=== PATIENT | male | born 1945 | race Caucasian/White ===

== ENCOUNTER 2017-01-08 08:25 | Emergency (ER) | payer MEDICARE ==
[2017-01-08 09:01] LABS: BASOPHILS 0 % (0-2); EOSINOPHILS 0.5 % (0-7); HEMATOCRIT 53.7 % (42.0-54.0); HEMOGLOBIN 18.1 g/dL (13.5-17.5); IMMATURE GRANULOCYTES 0.2 % (0-5); LYMPHOCYTES 32.4 % (15-50); MCH 30.2 pg (26.0-34.0); MCHC 33.7 g/dL (31.0-37.0); MCV 89.6 fL (80.0-100.0); NEUTROPHILS 56.9 % (40-80); RBC 5.99 10x6/uL (4.20-6.10); RDW 13.9 % (11.5-14.5); WBC 5.7 10x3/uL (4.8-10.8)
[2017-01-08 09:07] LABS: PLATELET COUNT 197 10x3/uL (130-400)
[2017-01-08 09:23] LABS: ALBUMIN 3.7 g/dL (3.4-5.0); ANION GAP 6.8 mmol/L (8-16); BILIRUBIN - TOTAL 0.4 mg/dL (0.2-1.3); CALCIUM 9.1 mg/dL (8.5-10.1); CARBON DIOXIDE 29.9 mmol/L (21.0-32.0); CREATININE - SERUM 1.2 mg/dL (0.6-1.3); POTASSIUM - SERUM 3.7 mmol/L (3.5-5.1); PROTEIN - SERUM 7.5 g/dL (6.4-8.2)
== END 2017-01-08 11:36 | disposition home or self-care (01) ==
LOC: D.ER 08:25
PROVIDERS: Emergency Medicine
DX: R42 Dizziness and giddiness (principal)

== ENCOUNTER → 2017-02-08 12:47 | Outpatient (CLI) | payer MEDICARE | END | disposition home or self-care (01) | LOC: D.US 12:47 | DX: I63.139 Cerebral infarction due to embolism of unspecified carotid artery (principal); I10 Essential (primary) hypertension; G47.33 Obstructive sleep apnea (adult) (pediatric) ==

== ENCOUNTER → 2018-08-29 18:21 | Outpatient (CLI) | payer MEDICARE | END | disposition home or self-care (01) | LOC: D.LABREF 18:21 | PROVIDERS: ATTEND Orthopaedic Surgery | DX: M16.12 Unilateral primary osteoarthritis, left hip (principal) ==

== ENCOUNTER 2018-10-17 09:35 | Day surgery (SDC) | payer MEDICARE ==
[2018-10-15 14:13] LABS: BASOPHILS 0.2 % (0-2); EOSINOPHILS 0.8 % (0-7); HEMATOCRIT 49.4 % (42.0-54.0); HEMOGLOBIN 17.4 g/dL (13.5-17.5); IMMATURE GRANULOCYTES 0.2 % (0-5); LYMPHOCYTES 35.9 % (15-50); MCH 30.5 pg (26.0-34.0); MCHC 35.2 g/dL (31.0-37.0); MCV 86.5 fL (80.0-100.0); MEAN PLATELET VOLUME 10.3 fL (7.4-10.4); MONOCYTES 11.5 % (2-11); NEUTROPHILS 51.4 % (40-80); PLATELET COUNT 235 10x3/uL (130-400); RBC 5.71 10x6/uL (4.20-6.10); RDW 13.7 % (11.5-14.5); WBC 6.1 10x3/uL (4.8-10.8)
[2018-10-15 14:23] LABS: ANION GAP 16.1 mmol/L (8-16); CALCIUM 9.3 mg/dL (8.5-10.1); CARBON DIOXIDE 24.4 mmol/L (21.0-32.0); CREATININE - SERUM 1.1 mg/dL (0.6-1.3); POTASSIUM - SERUM 3.5 mmol/L (3.5-5.1)
[2018-10-17 06:36] VITALS: BP 145/78; BMI 27.6
[~2018-10-17 09:35] MED LIST: ADALAT CC90 MG PO; CHLORTHALIDONE25 MG PO; NEURONTIN 300300 MG PO; TRAZODONE HCL150 MG PO; ULTRAM50 MG PO
--- NOTE | 2018-10-17 09:37 | NUR ---
0930-RECD FROM PACU. ALERT. IV PATENT. LEFT KNEE DRESSING DRY AND INTACT WITH IMMOBILIZER IN PLACE. DENIES PAIN/NAUSEA. FULL LIQUIDS SERVED.
--- NOTE | 2018-10-17 11:18 | NUR ---
1050 IV REMOVED 1115 VOIDED IN BATHROOM. AMB WELL WITH PWB
--- NOTE | 2018-10-17 11:38 | NUR ---
1115 RECIEVED CRUTCHES FROM DRS OFFICE. 1130 PT DISCHARGED FROM HOSPITAL
== END 2018-10-17 11:30 | disposition home or self-care (01) ==
LOC: D.OPS 09:35
PROVIDERS: ATTEND Orthopaedic Surgery
DX: S83.242A Other tear of medial meniscus, current injury, left knee, initial encounter (principal); M94.262 Chondromalacia, left knee; M23.8X2 Other internal derangements of left knee; Z01.812 Encounter for preprocedural laboratory examination

== ENCOUNTER → 2019-04-26 07:37 | Outpatient (CLI) | payer MEDICARE | END | disposition home or self-care (01) | LOC: D.RAD 07:37 | PROVIDERS: ATTEND Internal Medicine Pulmonary Disease | DX: R06.2 Wheezing (principal) ==

== ENCOUNTER → 2019-06-07 08:59 | Outpatient (CLI) | payer MEDICARE ==
--- NOTE | 2019-06-13 11:25 | EC ---
PATIENT:WILNER DECKER DATE OF SERVICE: 06/07/19 SEX: M MEDICAL RECORD: [id number] DATE OF : 47 LOCATION:[facility] AGE OF PATIENT: 74 ADMISSION DATE: 06/07/19 REFERRING PHYSICIAN: INTERPRETING PHYSICIAN: JOZEF MEYERS MD ECHOCARDIOGRAM REPORT ECHO CHARGES 4 ECHO COMPLETE Date: 06/07/19 CLINICAL DIAGNOSIS: MURMUR H/O HTN/CVA ECHOCARDIOGRAPHIC MEASUREMENTS (adult normal given) AC root (d.<3.7cm) 3.6 cm LV Septum d (<1.2 cm> 1.2 cm Valve Excursion 2.1 cm LV Septum (systole) 1.5 cm Left Atria (s.<4.0cm> 4.0 cm LVPW d(<1.2cm) 1.2 cm RV (d.<2.3cm) 2.6 cm LVPW (sytole) 1.7 cm LV diastole(<5.6CM) 6.2 cm MV E-F(>70mm/sec) cm LV systole 4.6 cm LVOT Diameter 2.0 cm MV exc.(>10mm) cm Est.ejection fraction (50-75%) % DOPPLER: LVIT cm/sec A 47.0 cm/sec E 71.0 cm/sec LA cm/sec RVSP 29.0 mmHg LVOT 117 cm/sec AOP1/2T m/s Asc. Ao 135 cm/sec RVOT 60.0 cm/sec RA cm/sec PA 115 cm/sec AV Gradient Peak 7.3 mmHg AV Mean 4.0 mmHg AV Area 2.5 cm MV Gradient Peak 2.6 mmHg MV Mean 0.69 mmHg MV Area cm COMMENTS: OP - HC Hat And Cap Drying Room Attendant: 1 ENEDINA KIARRA Fur Weigher: 3 Dr. Ortiz TAPE# PACS Pericardial Effusion N DATE OF SERVICE: Adequate 2D, color flow, spectral Doppler, and M-mode. Borderline LVH. LV internal dimension is normal. Wall motion is normal. EF is greater than or equal to 55%. Aortic valve is tricuspid. No evidence of stenosis on Doppler interrogation. Left atrium is upper limits of normal 4.1 cm. Mitral valve shows no prolapse. Zanb-gb-qonbqyxy MR. Right-sided chambers are grossly normal. Mild TR. ECHOCARDIOGRAM REPORT [id number] WILNER DECKER TRANSINT:[id number] Voice Confirmation ID: [id number] DOCUMENT ID: [id number] JOZEF MEYERS MD at 1125 CC: [id number] DICTATION DATE: 06/11/19949 NUCLEAR WEAPONS SPECIALIST: 06/11/19 1030 DEP CLI 06/07/19 [place] [id number] [place] [id number]
== END | disposition home or self-care (01) ==
LOC: D.HCCECHO 08:59
PROVIDERS: ATTEND Internal Medicine Interventional Cardiology
DX: I25.10 Atherosclerotic heart disease of native coronary artery without angina pectoris (principal)

== ENCOUNTER 2019-07-09 06:17 | Day surgery (SDC) | payer MEDICARE ==
[2019-07-08 09:19] LABS: ANION GAP 12.4 mmol/L (8-16); CALCIUM 9.5 mg/dL (8.5-10.1); CARBON DIOXIDE 31.4 mmol/L (21.0-32.0); CREATININE - SERUM 1.5 mg/dL (0.6-1.3); POTASSIUM - SERUM 3.8 mmol/L (3.5-5.1)
[2019-07-08 09:57] LABS: BASOPHILS 0.1 % (0-2); EOSINOPHILS 0.3 % (0-7); HEMATOCRIT 51.4 % (42.0-54.0); HEMOGLOBIN 15.4 g/dL (13.5-17.5); IMMATURE GRANULOCYTES 0.1 % (0-5); LYMPHOCYTES 24.3 % (15-50); MCH 22.9 pg (26.0-34.0); MCV 76.5 fL (80.0-100.0); MEAN PLATELET VOLUME 9.8 fL (7.4-10.4); MONOCYTES 10.5 % (2-11); NEUTROPHILS 64.7 % (40-80); RDW 19.4 % (11.5-14.5); WBC 8.7 10x3/uL (4.8-10.8)
[2019-07-08 10:02] LABS: PLATELET COUNT 370 10x3/uL (130-400); RBC 6.72 10x6/uL (4.20-6.10)
[~2019-07-09] VITALS: Ht 180.3 cm; Wt 98.9 kg
[~2019-07-09 06:17] MED LIST changes: +ANASTROZOLE 1 MG TAB PO; +BENICAR40 MG PO; +ELIQUIS5 MG PO
[2019-07-09 06:42] VITALS: BP 113/70; Ht 180.3 cm; Wt 98.9 kg
[2019-07-09] MEDS ORDERED: HYDROCODON-ACE1 EA10 PO (09:30)
--- NOTE | 2019-07-09 16:04 | NUR ---
1047 1 NORCO 10/325MG PO FOR COMPLAINTS OF ABDOMINAL PAIN. RANKS @ 11/26. ICE PACK TO ABDOMEN. Maggie TIWARI R.N.
--- NOTE | 2019-07-09 16:08 | NUR ---
1145 UP TO BATHROOM VOIDED. AMBULATORY WITHOUT DIFFICULTY. IV DC'ED WITH CATH INTACT. DRESSING. 1220 DRESSED, AWAKE & ALERT. GIVEN DISCHARGE INFORMATION INCLUDING: RX: NORCO 10/325MG, MED REC, RTC APPT., [facility] D/C INSTRUCTIONS, & POST CHOLECYSTECOMY D/C INSTRUCTIONS. TO PRIVATE CAR PER WHEELCHAIR BY VOLUNTEER. HOME WITH MRS. DECKER. Maggie TIWARI R.N.
--- NOTE | 2019-07-10 11:34 | OP ---
PATIENT NAME: WILNER DECKER MEDICAL RECORD: [id number] :47 LOCATION:D.[facility] ADMISSION DATE: SURGEON: OMER SHARPE MD DATE OF OPERATION: 07/09/2019 PREOPERATIVE DIAGNOSIS: Cholelithiasis. POSTOPERATIVE DIAGNOSIS: Cholelithiasis. PROCEDURE: Laparoscopic cholecystectomy. SURGEON: Omer Sharpe MD REPORT OF PROCEDURE: The patient's abdomen was prepped and draped in sterile fashion. A cutdown was made on the superior aspect of the umbilicus, 0 Vicryls were placed in the fascia bilaterally and the fascia was incised with 15 blade. I then bluntly entered the peritoneal cavity and placed a 12-mm Corina port. Under direct visualization, a 5-mm trocar was placed in the epigastrium and 2 more 5-mm trocars were placed in the right subcostal region. The gallbladder had a lot of inflammatory adhesions present around it. These were taken down with electrocautery and blunt dissection. When we eventually got to the gallbladder, it was contracted and very firm. It did not appear to be densely adherent to the liver bed in any way. We were able to dissect down and find the cystic artery and cystic duct. Once we had our critical view of safety, then these 2 structures were clipped proximally and distally and ligated in standard fashion. The gallbladder was then taken off the liver bed using electrocautery and placed into an Endo Catch bag. Any bleeding from the liver bed was then treated with electrocautery. At this point, the abdomen was irrigated out. The ports and insufflation were removed and the gallbladder was taken out through the umbilicus. The umbilical fascia was closed with interrupted 0 Vicryls times 3. The wounds were then irrigated out with normal saline, infused with 10 mL of 0.25% Marcaine with epinephrine. The skin incisions were all closed with subcutaneous 5-0 Monocryl and dressed appropriately. COMPLICATIONS: None. CONDITION: Stable. ANESTHESIA: General endotracheal and local. BLOOD LOSS: Minimal. TRANSINT:[id number] Voice Confirmation ID: [id number] DOCUMENT ID: [id number] OMER SHARPE MD at 1134 CC: [id number] DICTATION DATE: 07/09/19 1053 ARTIFICIAL BREEDING DISTRIBUTOR: 07/09/19 1320 [facility] 07/09/19 [facility] [address] [place] [address]
== END 2019-07-09 12:20 | disposition home or self-care (01) ==
LOC: D.OPS 06:17 → D.PAN 09:00 → D.OPS 12:20
PROVIDERS: ATTEND Surgery
DX: K80.20 Calculus of gallbladder without cholecystitis without obstruction (principal); K21.9 Gastro-esophageal reflux disease without esophagitis; I48.91 Unspecified atrial fibrillation; G47.33 Obstructive sleep apnea (adult) (pediatric); I10 Essential (primary) hypertension